=== PATIENT | female | born 1985 ===

== ENCOUNTER 2025-01-06 05:54 | Day surgery (SDC) | payer OTHER ==
[2025-01-02 09:52] VITALS: BP 121/81
[2025-01-02 10:27] LABS: URINE APPEARANCE Cloudy; URINE BILIRRUBIN Negative (NEGATIVE); URINE BLOOD Negative; URINE COLOR Yellow; URINE GLUCOSE Negative (NEGATIVE); URINE KETONE Trace (NEGATIVE); URINE LEUKOCYTE Negative; URINE NITRATE Negative; URINE PROTEIN Negative (NEGATIVE); URINE UROBILINOGEN 0.2 E.U./dl
[2025-01-02 10:31] LABS: URINE EPITHELIAL CELLS 68.2 uL (0.0-38.8); URINE RBC 5.5 uL (0.0-20.8); URINE WBC 5.3 uL (0.0-23.2)
[2025-01-02 10:36] LABS: HEMATOCRIT 40.4 % (36.0-45.00); HEMOGLOBIN 13.6 g/dL (12.0-15.00); MEAN CELL VOLUME 84.9 fL (80.00-100.00); MEAN CORPUSCULAR HEMOGLOBIN 28.6 pg (27.00-32.0); MEAN CORPUSCULAR HGB CONC 33.6 g/dl (32.0-36.0); PLATELET COUNT 313 K/uL (150-450); RED BLOOD COUNT 4.75 M/uL (4.00-6.00); RED CELL DISTRIBUTION WIDTH 14.7 % (11.5-14.5)
[2025-01-02 10:53] LABS: PARTIAL THROMBOPLASTIN TIME 27.3 SECONDS (22.0-34.0); PROTHROMBIN TIME 10.9 SECONDS (9.0-11.5)
[2025-01-02 11:16] LABS: ALBUMIN 3.6 gm/dL (3.4-5.0); CALCIUM 9.3 mg/dL (8.5-10.1); CREATININE SERUM 0.54 mg/dL (0.55-1.02); GFR 126.35; PHOSPHOROUS 3.7 mg/dL (2.5-4.9); POTASSIUM 4.87 mEq/L (3.5-5.1)
[~2025-01-06] VITALS: Ht 165.1 cm; Wt 51.7 kg
[~2025-01-06 05:54] MED LIST: ZEPBOUND12.5 MG/0.; ZOCOR20 MG PO
[2025-01-06] MEDS ORDERED: CEFAZOLIN SODIUM 1,000 MG VIAL ONE (07:41)
[2025-01-06] MEDS ORDERED: LIDOCAINE HCL 1%/EPINEPHRINE 20ML VIAL IJ ONE (10:13)
[2025-01-06] MEDS ORDERED: OXYMETAZOLINE HCL 15 ML NASAL DROPS NASAL ONE (11:30)
[2025-01-06] MEDS ORDERED: AYR SALINE50 ML NASAL (11:56)
[2025-01-06] MEDS ORDERED: AMOXICILLIN500 M1 PO (11:56)
[2025-01-06] MEDS ORDERED: MORPHINE SULFATE 4 MG/ML VIAL IV ONE (12:40)
== END 2025-01-06 14:20 | disposition home or self-care (01) ==
LOC: CIR.AMB 05:54
PROVIDERS: ATTEND Otolaryngology Otology & Neurotology
DX: J32.4 Chronic pansinusitis (principal); J34.2 Deviated nasal septum; J34.3 Hypertrophy of nasal turbinates